=== PATIENT | male | born 1955 | race Caucasian/White ===

== ENCOUNTER 2017-07-13 16:45 | Inpatient (IN) | payer OTHER ==
[~2017-07-13] VITALS: Ht 180.3 cm; Wt 73.5 kg
[~2017-07-13 16:45] MED LIST: ALBU17AE3 IH; CIPR500T78 PO; OMEP20TA2 PO
[2017-07-13] MEDS ORDERED: LACTATED RINGERS 1,000 ML IV ONE (19:03)
--- NOTE | 2017-07-13 19:03 | ED Integumentary General ---
General Chief Complaint: Skin/Wound Problems Stated Complaint: SKIN TEARS Nursing Triage Note: PT TO ED BY EMS, SENT TO WAITING ROOM, THEN TO ROOM 4 PER W/C PT HAS NUMEROUS LESIONS ON TORSO, LEGS AND ARMS. PT STATES HAS BEEN WALKING FROM [place] TO [place] AND PLANS ON GOING TO [place]. Source: patient Exam Limitations: no limitations History of Present Illness Date Seen by Provider: Jul 13, 2017 Time Seen by Provider: 18:49 Initial Comments Patient presents to ER by private conveyance with a chief complaint that he is having a rash. He has a long-standing history of psoriasis as well as a red rash on his abdomen and trunk is been there for a long time that does not bother him so much. However on his legs he is feeling that they are swollen very itchy and he scratched them until they have bled. He says he also does not feel well feels very weak, tired malaise poor appetite. He says he tries to go on his own and lives transiently moving from [place] through the area. He is seen sometimes the [facility] but does not have a clinic or Dr. that he knows of or is assigned to. Allergies and Home Medications Allergies Coded Allergies: No Known Drug Allergies (Unverified , 10/19/12) Patient Home Medication List Home Medication List Reviewed: Yes Constitutional: No chills, No diaphoresis, malaise EENTM: No hearing loss, No ear pain, No eye pain Respiratory: No cough, No short of breath Cardiovascular: No chest pain, No edema Gastrointestinal: No abdominal pain, No constipation, No diarrhea, No nausea, No vomiting Genitourinary: No discharge, No dysuria Musculoskeletal: No back pain, No joint pain Skin: see HPI Past Tgiqysu-Xkoqvs-Ytosge Hx Patient Social History Alcohol Use: Regular Use Number of Drinks Today: 2 Alcohol Beverage of Choice: Beer Recreational Drug Use: No Smoking Status: Never a Smoker Recent Foreign Travel: No Contact w/Someone Who Travel: No Recent Infectious Disease Expo: No Recent Hopitalizations: No Immunizations Up To Date Tetanus Booster (TDap): Less than 5yrs Date of Pneumonia Vaccine: Oct 19, 2008 Date of Influenza Vaccine: Feb 04, 2013 Surgeries History of Surgeries: Yes (R foot L elbow) Respiratory History of Respiratory Disorde: No Cardiovascular History of Cardiac Disorders: No Neurological History of Neurological Disord: Yes Reproductive System Hx Reproductive Disorders: No Gastrointestinal History of Gastrointestinal Di: No Musculoskeletal History of Musculoskeletal Dis: No Endocrine History of Endocrine Disorders: No Cancer History of Cancer: No Psychosocial History of Psychiatric Problem: Yes (alcoholism) Behavioral Health Disorders: Depression Integumentary History of Skin or Integumenta: Yes Skin/Integumentary Disorders: Psoriasis Blood Transfusions History of Blood Disorders: No Adverse Reaction to a Blood Tr: No Family Medical History Significant Family History: COPD Physical Exam Vital Signs Vital Signs - First Documented 07/13/17 17:40 Temp 98.1 Pulse 97 Resp 18 B/P (MAP) 130/82 (98) Pulse Ox 98 Capillary Refill : Less Than 3 Seconds General Appearance: WD/WN, mild distress HEENT: PERRL/EOMI, pharynx normal Neck: non-tender, supple, normal inspection Cardiovascular: normal peripheral pulses, regular rate, rhythm Respiratory: chest non-tender, lungs clear Gastrointestinal: non tender, soft Neurologic/Psychiatric: alert, oriented x 3 Skin: rash (erythematous round raised edged rash on his trunk and upper extremities with silver scaling consistent with psoriasis. Bilateral lower extremities erythematous, tender, swollen with excoriations and scant dried blood.) Progress/Results/Core Measures Results/Orders Lab Results Laboratory Tests Test 07/13/17 19:19 07/13/17 19:59 Range/Units Urine Color YELLOW Urine Clarity CLEAR Urine pH 5 5-9 Urine Specific [place] 1.010 L 1.016-1.022 Urine Protein NEGATIVE NEGATIVE Urine Glucose (UA) NEGATIVE NEGATIVE Urine Ketones NEGATIVE NEGATIVE Urine Nitrite NEGATIVE NEGATIVE Urine Bilirubin NEGATIVE NEGATIVE Urine Urobilinogen NORMAL NORMAL MG/DL Urine Leukocyte Esterase NEGATIVE NEGATIVE Urine RBC (Auto) NEGATIVE NEGATIVE Urine RBC NONE /HPF Urine WBC NONE /HPF Urine Squamous Epithelial Cells RARE /HPF Urine Crystals NONE /LPF Urine Bacteria NEGATIVE /HPF Urine Casts NONE /LPF Urine Mucus NEGATIVE /LPF Urine Culture Indicated NO White Blood Count 4.0 L 4.3-11.0 10^3/uL Red Blood Count 3.10 L 4.35-5.85 10^6/uL Hemoglobin 10.1 L 13.3-17.7 G/DL Hematocrit 29 L 40-54 % Mean Corpuscular Volume 94 80-99 FL Mean Corpuscular Hemoglobin 33 25-34 PG Mean Corpuscular Hemoglobin Concent 35 32-36 G/DL Red Cell Distribution Width 15.1 H 10.0-14.5 % Platelet Count 218 130-400 10^3/uL Mean Platelet Volume 9.2 7.4-10.4 FL Neutrophils (%) (Auto) 58 42-75 % Lymphocytes (%) (Auto) 22 12-44 % Monocytes (%) (Auto) 15 H 0-12 % Eosinophils (%) (Auto) 4 0-10 % Basophils (%) (Auto) 1 0-10 % Neutrophils # (Auto) 2.3 1.8-7.8 X 10^3 Lymphocytes # (Auto) 0.9 L 1.0-4.0 X 10^3 Monocytes # (Auto) 0.6 0.0-1.0 X 10^3 Eosinophils # (Auto) 0.2 0.0-0.3 10^3/uL Basophils # (Auto) 0.0 0.0-0.1 10^3/uL Erythrocyte Sedimentation Rate 34 H 0-30 MM/HR Sodium Level 137 135-145 MMOL/L Potassium Level 4.0 3.6-5.0 MMOL/L Chloride Level 104 98-107 MMOL/L Carbon Dioxide Level 22 21-32 MMOL/L Anion Gap 11 5-14 MMOL/L Blood Urea Nitrogen 8 7-18 MG/DL Creatinine 0.69 0.60-1.30 MG/DL Estimat Glomerular Filtration Rate > 60 BUN/Creatinine Ratio 12 Glucose Level 100 70-105 MG/DL Lactic Acid Level 1.80 0.50-2.00 MMOL/L Calcium Level 8.2 L 8.5-10.1 MG/DL Magnesium Level 1.9 1.8-2.4 MG/DL Total Bilirubin 0.2 0.1-1.0 MG/DL Aspartate Amino Transf (AST/SGOT) 60 H 5-34 U/L Alanine Aminotransferase (ALT/SGPT) 35 0-55 U/L Alkaline Phosphatase 118 40-136 U/L C-Reactive Protein High Sensitivity 0.27 0.00-0.50 MG/DL Total Protein 6.7 6.4-8.2 GM/DL Albumin 3.7 3.2-4.5 GM/DL My Orders Orders - KIRSTIE DARDEN Cbc With Automated Diff (07/13/17 19:03) Comprehensive Metabolic Panel (07/13/17 19:03) Hs C Reactive Protein (07/13/17 19:03) Magnesium (07/13/17 19:03) Tick Panel With Lyme Eia (07/13/17 19:03) Ua Culture If Indicated (07/13/17 19:03) Blood Culture (07/13/17 19:03) Erythrocyte Sedimentation Rate (07/13/17 19:03) Chest Pa/Lat (2 View) (07/13/17 19:03) Saline Lock/Iv-Start (07/13/17 19:03) Lactated Ringers (Lr 1000 Ml Iv Solution (07/13/17 19:03) Loratadine Tablet (Claritin Tablet) (07/13/17 19:15) Ramos Prep (07/13/17 19:03) Ramos Prep (07/13/17 19:04) Lactic Acid Analyzer (07/13/17 19:03) Ceftriaxone Injection (Rocephin Injectio (07/13/17 23:15) Medications Given in ED Current Medications Medications Dose Ordered Sig/Radhika Route Start Time Stop Time Status Last Admin Dose Admin Ceftriaxone Sodium 1000 mg/ Sodium Chloride 100 ml @ 200 mls/hr ONCE ONCE IV 07/13/17 23:15 07/13/17 23:44 DC 07/13/17 23:40 200 MLS/HR Lactated Ringer's 1,000 ml @ 0 mls/hr Q0M ONCE IV 07/13/17 19:03 07/13/17 19:10 DC 07/13/17 20:05 1,000 MLS/HR Loratadine 10 mg ONCE ONCE PO 07/13/17 19:15 07/13/17 19:16 DC 07/13/17 20:37 10 MG Vital Signs/I&O Vital Sign - Last 12Hours 07/13/17 17:40 Temp 98.1 Pulse 97 Resp 18 B/P (MAP) 130/82 (98) Pulse Ox 98 Intake and Output 07/14/17 00:00 Intake Total 1000 ml Balance 1000 ml Blood Pressure Mean: 98 Departure Communication (Admissions) Time/Spoke to Admitting Phy: 00:[address] Stahl Impression Impression: Primary Impression: Cellulitis Qualified Codes: L03.119 - Cellulitis of unspecified part of limb Additional Impressions: Sepsis Qualified Codes: A41.9 - Sepsis, unspecified organism Psoriasis Disposition: 09 ADMITTED INPATIENT Condition: Stable Admissions Decision to Admit Reason: Admit from ER (General) Decision to Admit/Date: Jul 14, 2017 Time/Decision to Admit Time: 00:10 Departure-Patient Inst. Referrals: NO,LOCAL PHYSICIAN (PCP/Family) Primary Care Physician KIRSTIE DARDEN Jul 13, 2017 19:03
[2017-07-13] MEDS ORDERED: LORATADINE (CLARITIN) 10 MG TAB PO ONE (19:15)
[2017-07-13 19:35] LABS: BILIRUBIN,URINE NEGATIVE (NEGATIVE); CLARITY,URINE CLEAR; COLOR,URINE YELLOW; GLUCOSE, URINE (UA) NEGATIVE (NEGATIVE); KETONES,URINE NEGATIVE (NEGATIVE); LEUKOCYTE ESTERASE ,URINE NEGATIVE (NEGATIVE); NITRITE,URINE NEGATIVE (NEGATIVE); PH,URINE 5 (5-9); PROTEIN,URINE NEGATIVE (NEGATIVE); UROBILINOGEN,URINE NORMAL (NORMAL)
[2017-07-13 19:46] LABS: BACTERIA,URINE NEGATIVE /HPF; SQUAMOUS EPITHELIAL CELL,UR RARE /HPF
[2017-07-13 20:08] LABS: BASOPHILS % (AUTO) 1 % (0-10); EOSINOPHILS # (AUTO) 0.2 10^3/uL (0.0-0.3); EOSINOPHILS % (AUTO) 4 % (0-10); HEMATOCRIT 29 % (40-54); HEMOGLOBIN 10.1 G/DL (13.3-17.7); LYMPHOCYTES # (AUTO) 0.9 X 10^3 (1.0-4.0); LYMPHOCYTES % (AUTO) 22 % (12-44); MEAN CORPUSCULAR HEMOGLOBIN 33 PG (25-34); MEAN CORPUSCULAR HGB CONC 35 G/DL (32-36); MEAN CORPUSCULAR VOLUME 94 FL (80-99); MEAN PLATELET VOLUME 9.2 FL (7.4-10.4); MONOCYTES # (AUTO) 0.6 X 10^3 (0.0-1.0); MONOCYTES % (AUTO) 15 % (0-12); NEUTROPHILS # (AUTO) 2.3 X 10^3 (1.8-7.8); NEUTROPHILS % (AUTO) 58 % (42-75); PLATELET COUNT 218 10^3/uL (130-400); RED CELL DISTRIBUTION WIDTH 15.1 % (10.0-14.5)
[2017-07-13 20:33] LABS: ALANINE AMINOTRANSFERASE 35 U/L (0-55); ALBUMIN 3.7 GM/DL (3.2-4.5); ALKALINE PHOSPHATASE 118 U/L (40-136); BILIRUBIN,TOTAL 0.2 MG/DL (0.1-1.0); BUN/CREATININE RATIO 12; CALCIUM 8.2 MG/DL (8.5-10.1); CARBON DIOXIDE 22 MMOL/L (21-32); CHLORIDE 104 MMOL/L (98-107); CREATININE SERUM 0.69 MG/DL (0.60-1.30); ERYTHROCYTE SEDIMENTATION RATE 34 MM/HR (0-30); GFR ESTIMATED > 60; GLUCOSE 100 MG/DL (70-105); MAGNESIUM 1.9 MG/DL (1.8-2.4); SODIUM 137 MMOL/L (135-145); TOTAL PROTEIN 6.7 GM/DL (6.4-8.2)
--- NOTE | 2017-07-13 21:39 | Diagnostic Imaging Report ---
INDICATION: Weakness, rule out sepsis. COMPARISON STUDY: Chest from 01/29/2016. FINDINGS: Frontal and lateral views of the chest demonstrate COPD changes. No focal infiltrates are present. The heart size and vascularity are normal. There are no pleural effusions. IMPRESSION: COPD. Dictated by: Dictated on workstation # [id number]
[2017-07-13] MEDS ORDERED: cefTRIAXone INJECTION 1,000 MG in NS (IVPB) 100 ML IV ONE (23:15)
[2017-07-14] VITALS (8 sets, daily range): BP systolic 115–155; BP diastolic 61–86
[2017-07-14] MEDS ORDERED: 1/2 NS W/KCL 20 MEQ/L 1,000 ML IV ONE (01:26)
[2017-07-14] MEDS: 1/2 NS W/KCL 20 MEQ/L 1,000 ML IV SCH ×2 (01:44→08:10)
[2017-07-14] MEDS ORDERED: ONDANSETRON 4 MG/2 ML (SDV) Z0FRAN IV PRN (02:00)
[2017-07-14] MEDS ORDERED: IBUPROFEN 800 MG (MOTRIN) TAB PO PRN (02:00)
[2017-07-14] MEDS ORDERED: ACETAMINOPHEN 500 MG TAB (TYLENOL) PO PRN (02:00)
[2017-07-14 06:01] LABS: BASOPHILS % (AUTO) 1 % (0-10); EOSINOPHILS # (AUTO) 0.2 10^3/uL (0.0-0.3); EOSINOPHILS % (AUTO) 5 % (0-10); HEMATOCRIT 27 % (40-54); HEMOGLOBIN 9.1 G/DL (13.3-17.7); LYMPHOCYTES # (AUTO) 0.8 X 10^3 (1.0-4.0); LYMPHOCYTES % (AUTO) 23 % (12-44); MEAN CORPUSCULAR HEMOGLOBIN 32 PG (25-34); MEAN CORPUSCULAR HGB CONC 34 G/DL (32-36); MEAN CORPUSCULAR VOLUME 95 FL (80-99); MEAN PLATELET VOLUME 9.5 FL (7.4-10.4); MONOCYTES # (AUTO) 0.5 X 10^3 (0.0-1.0); MONOCYTES % (AUTO) 14 % (0-12); NEUTROPHILS # (AUTO) 2.1 X 10^3 (1.8-7.8); NEUTROPHILS % (AUTO) 58 % (42-75); PLATELET COUNT 205 10^3/uL (130-400); RED BLOOD COUNT 2.85 10^6/uL (4.35-5.85); RED CELL DISTRIBUTION WIDTH 15.3 % (10.0-14.5); WHITE BLOOD COUNT 3.6 10^3/uL (4.3-11.0)
[2017-07-14 06:21] LABS: BUN/CREATININE RATIO 13; CARBON DIOXIDE 20 MMOL/L (21-32); CHLORIDE 109 MMOL/L (98-107); CREATININE SERUM 0.71 MG/DL (0.60-1.30); GFR ESTIMATED > 60; GLUCOSE 84 MG/DL (70-105); POTASSIUM 4.1 MMOL/L (3.6-5.0); SODIUM 139 MMOL/L (135-145)
[2017-07-14] MEDS ORDERED: INFLUENZA TRIvalent 2017-2018 0.5 ML/45 MCG SYR IM ONE (07:15)
[2017-07-14] MEDS ORDERED: THIAMINE INJECTION 100 MG, FOLIC ACID INJECTION 1 MG, MAGNESIUM SULFATE 2 GM, VITAMIN M... IV SCH ×5 (08:04)
[2017-07-14] MEDS ORDERED: 1/2 NS IV SOLUTION 1,000 ML IV PRN (08:04)
[2017-07-14] MEDS ORDERED: D5 1/2 NS 1000 ML IV SOLUTION 1,000 ML IV PRN (08:15)
[2017-07-14] MEDS ORDERED: LORazepam INJ 2 MG/ML (ATIVAN) VIAL IV PRN (08:15)
[2017-07-14] MEDS ORDERED: LORazepam 1 MG (ATIVAN) TAB PO PRN (08:15)
[2017-07-14] MEDS ORDERED: LORazepam INJ 2 MG/ML (ATIVAN) VIAL IM/IV PRN (08:15)
--- NOTE | 2017-07-14 08:30 | History & Physical-Hospitalist ---
HPI History of Present Illness: HPI/Chief Complaint Pt is a 62yoCM with a PMH of psoriasis and alcohol abuse who presented to the ER for a wound on his right knee. He denies any history of trauma or fall but noticed 2 days that his leg he had a wound on his knee. It was draining purulent fluid and decided to call 911 yesterday. He reports he was in [place] walking through it on his way to [place] from [facility]. He is homeless and has been sleeping outside during this trek. He denies any known bug bites. He denies fevers, chills, or any sick contacts. 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 Yesterday he only drank 1-2 and now he is shaking and feels like he may be withdrawing from alcohol. Source: patient Exam Limitations: no limitations Date Seen 07/14/17 Time Seen by Provider: 08:05 Attending Physician Gini Stahl MD PCP No,Local Physician Referring Physician Date of Admission Jul 14, 2017 at 12:01 am Home Medications & Allergies Home Medications Reviewed patient Home Medication Reconciliation Form Allergies Allergies Coded Allergies No Known Drug Allergies (Unverified10/19/12) Past Zatzncz-Aztqgg-Dlgltx Hx Patient Social History Marrital Status: single Employed/Student: unemployed Alcohol Use: Regular Use Number of Drinks Today: 2 Alcohol Beverage of Choice: Beer (6-8 40oz of beer) Recreational Drug Use: No Smoking Status: Never a Smoker Physical Abuse Screen: No Sexual Abuse: No Recent Foreign Travel: No Contact w/other who traveled: No Recent Hopitalizations: No Recent Infectious Disease Expo: No Immunizations Up To Date Tetanus Booster (TDap): Less than 5yrs Date of Pneumonia Vaccine: Oct 19, 2008 Date of Influenza Vaccine: Feb 04, 2013 Seasonal Allergies Seasonal Allergies: No Surgeries Yes (R foot L elbow) Respiratory No Cardiovascular No Neurological Yes Reproductive System Hx Reproductive Disorders: No Genitourinary No Gastrointestinal No Musculoskeletal No Endocrine History of Endocrine Disorders: No HEENT History of HEENT Disorders: No Cancer No Psychosocial History of Psychiatric Problem: Yes (alcoholism) Behavioral Health Disorders: Depression Integumentary History of Skin or Integumenta: Yes Skin/Integumentary Disorders: Psoriasis Blood Transfusions History of Blood Disorders: No Adverse Reaction to a Blood Tr: No Family Medical History Significant Family History: Cancer (father-unknown kind), COPD Family Hx: Patient reports no known family medical history. Review of Systems Constitutional: No chills, No fever, No weakness, No weight loss EENTM: No blurred vision, No double vision, No hoarseness, No nose congestion, No throat pain Respiratory: No cough, No dyspnea on exertion, No phlegm, No short of breath Cardiovascular: No chest pain, No edema, No palpitations Gastrointestinal: No abdominal pain, No constipation, diarrhea (3-4 days ago- none since), No loss of appetite, No melena, No nausea, No vomiting Genitourinary: No dysuria, No frequency Musculoskeletal: joint pain (knee pain), No joint swelling, No muscle pain, No muscle weakness Skin: see HPI, pruritus, rash Psychiatric/Neurological: Denies Anxiety, Denies Emotional Problems, Denies Headache, Denies Numbness, Denies Tingling, Tremors Physical Exam Physical Exam Vital Signs Vital Signs - First Documented 07/13/17 07/14/17 17:40 01:00 Temp 98.1 Pulse 97 Resp 18 B/P (MAP) 130/82 (98) Pulse Ox 98 O2 Delivery Room Air Capillary Refill : Less Than 3 Seconds General Appearance: WD/WN, Chronically ill, Mild Distress HEENT: PERRL/EOMI, Moist Mucous Membranes, No Scleral Icterus (L), No Scleral Icterus (R) Neck: Normal Inspection, Supple, No JVD, No Thyromegaly Respiratory: Lungs Clear, No Accessory Muscle Use, No Respiratory Distress Cardiovascular: Regular Rate, Rhythm, No Edema, No Murmur, Normal Peripheral Pulses Gastrointestinal: Normal Bowel Sounds, Non Tender, Soft, No Distended, No Guarding, No Rebound Extremity: Normal Capillary Refill, Non Tender, No Calf Tenderness, No Pedal Edema Neurologic/Psychiatric: Alert, Oriented x3, No Motor/Sensory Deficits, Normal Mood/Affect Skin: Other (significant erythema on bilateral legs with excoriations and injuries consitent with fall (horizontal linear abrasions), right knee with 3cm abrasions with purlent drainage, bilateral elbows with psoriatic plaques) Results Results/Procedures Lab Laboratory Tests 07/13/17 19:59 07/14/17 05:45 Radiology Date of Exam: 07/13/17 CHEST PA/LAT (2 VIEW) INDICATION: Weakness, rule out sepsis. COMPARISON STUDY: Chest from 01/29/2016. FINDINGS: Frontal and lateral views of the chest demonstrate COPD changes. No focal infiltrates are present. The heart size and vascularity are normal. There are no pleural effusions. IMPRESSION: COPD. Assessment/Plan Admission Diagnosis Sepsis Admission Status: Inpatient Order (span 2 midnights) Reason for Inpatient Admission: Sepsis, needs IV abx Diagnosis/Problems Diagnosis/Problems (1) Sepsis Status: Acute Assessment & Plan: right knee cellulitis with overlying abrasions appears to be due to fall but patient denies history may be skewed by intoxication Will get knee XR Leukopenia with tachycardia as well Lactic normal, no hypotension No need for 30cc/kg bolus Continue on Rocephin and obtain wound culture Blood cultures ordered in ER Qualifiers: Qualified Codes: A41.9 - Sepsis, unspecified organism (2) Cellulitis Status: Acute Assessment & Plan: Antibiotics as above Appears to be cellulitis- no symptoms of joint involvement Qualifiers: Qualified Codes: L03.115 - Cellulitis of right lower limb (3) Alcohol abuse Assessment & Plan: Reports 2 beers yesterday Alcohol level this AM [address] on CIWA protocol Oral ativan given, IV available should CIWA score necessitate it Tremors noted during my exam Banana Bag ordered (4) Normocytic anemia Assessment & Plan: Likely due to malnutrition from alcohol abuse Trend- no signs of symptoms of bleeding Will start on multivitamin (5) Hypomagnesemia Status: Acute Assessment & Plan: Will replaced (6) Psoriasis Status: Acute Assessment & Plan: On no medications as outpatient Will continue emolient treatments currently Can try steroids on elbows where tick plaques are if desired (7) Discharge planning issues Assessment & Plan: He is homeless with active alcohol dependence Will consult for assistance with DC planning (8) Prophylactic measure Assessment & Plan: Lovenox Banana Bag Regular Diet Clinical Quality Measures DVT/VTE Risk/Contraindication: Risk Factor Score Per Nursin RFS Level Per Nursing on Admit: 4+=Very High GINI STAHL MD Jul 14, 2017 08:30
[2017-07-14] MEDS: MULTIVIT W/MINERALS TAB (THERAGRAN M) PO SCH (09:16)
[2017-07-14] MEDS: ENOXAPARIN 40 MG/0.4 ML (LOVENOX) SYR SC SCH (09:17)
--- NOTE | 2017-07-14 10:28 | Diagnostic Imaging Report ---
INDICATION: Cellulitis and sepsis. 3 views of right knee were obtained. FINDINGS: The alignment is normal. There is no fracture or dislocation. Soft tissues are unremarkable. There does not appear to be a joint effusion. There are mild degenerative changes. IMPRESSION: Mild degenerative change, otherwise unremarkable. Dictated by: Dictated on workstation # [id number]
[2017-07-14] MEDS: THIAMINE INJECTION 100 MG, FOLIC ACID INJECTION 1 MG, MAGNESIUM SULFATE 2 GM, VITAMIN M... IV SCH ×5 (11:28)
[2017-07-14] MEDS: MAGNESIUM 1 GM/100 ML IVPB 100 ML IV SCH ×4 (13:57→17:10)
[2017-07-14] MEDS: diphenhydrAMINE 25 MG TAB (BENADRYL) PO PRN (19:58)
[2017-07-14] MEDS: BETAMETHASONE DIPRO (AUGMENTED) 0.05% OINT 15 GM TOP SCH (21:38)
[2017-07-14] MEDS: cefTRIAXone INJECTION 1,000 MG in NS (IVPB) 100 ML IV SCH (23:11)
[2017-07-15 00:59] VITALS: BP 144/73
[2017-07-15] MEDS: MULTIVIT W/MINERALS TAB (THERAGRAN M) PO SCH (06:06)
[2017-07-15 06:20] LABS: BASOPHILS % (AUTO) 1 % (0-10); EOSINOPHILS # (AUTO) 0.3 10^3/uL (0.0-0.3); EOSINOPHILS % (AUTO) 8 % (0-10); HEMATOCRIT 27 % (40-54); HEMOGLOBIN 8.9 G/DL (13.3-17.7); LYMPHOCYTES # (AUTO) 0.9 X 10^3 (1.0-4.0); LYMPHOCYTES % (AUTO) 26 % (12-44); MEAN CORPUSCULAR HEMOGLOBIN 32 PG (25-34); MEAN CORPUSCULAR HGB CONC 34 G/DL (32-36); MEAN CORPUSCULAR VOLUME 96 FL (80-99); MEAN PLATELET VOLUME 9.9 FL (7.4-10.4); MONOCYTES # (AUTO) 0.6 X 10^3 (0.0-1.0); MONOCYTES % (AUTO) 17 % (0-12); NEUTROPHILS # (AUTO) 1.6 X 10^3 (1.8-7.8); NEUTROPHILS % (AUTO) 49 % (42-75); PLATELET COUNT 182 10^3/uL (130-400); RED BLOOD COUNT 2.77 10^6/uL (4.35-5.85); RED CELL DISTRIBUTION WIDTH 15.3 % (10.0-14.5); WHITE BLOOD COUNT 3.3 10^3/uL (4.3-11.0)
[2017-07-15 06:22] LABS: BUN/CREATININE RATIO 14; CALCIUM 7.9 MG/DL (8.5-10.1); CARBON DIOXIDE 22 MMOL/L (21-32); CHLORIDE 107 MMOL/L (98-107); CREATININE SERUM 0.74 MG/DL (0.60-1.30); GFR ESTIMATED > 60; GLUCOSE 91 MG/DL (70-105); MAGNESIUM 2.2 MG/DL (1.8-2.4); POTASSIUM 3.8 MMOL/L (3.6-5.0); SODIUM 136 MMOL/L (135-145)
[2017-07-15 08:00] VITALS: BP 142/68
[2017-07-15] MEDS: BETAMETHASONE DIPRO (AUGMENTED) 0.05% OINT 15 GM TOP SCH ×2 (08:49→20:11)
[2017-07-15] MEDS: THIAMINE INJECTION 100 MG, FOLIC ACID INJECTION 1 MG, MAGNESIUM SULFATE 2 GM, VITAMIN M... IV SCH ×5 (08:49)
[2017-07-15] MEDS: ENOXAPARIN 40 MG/0.4 ML (LOVENOX) SYR SC SCH (08:49)
--- NOTE | 2017-07-15 12:34 | Progress Note-Hospitalist ---
Subjective HPI/CC On Admission Date Seen by Provider: Jul 15, 2017 Time Seen by Provider: 12:07 Pt is a 62yoCM with a PMH of psoriasis and alcohol abuse who presented to the ER for a wound on his right knee. He denies any history of trauma or fall but noticed 2 days that his leg he had a wound on his knee. It was draining purulent fluid and decided to call 911 yesterday. He reports he was in [place] walking through it on his way to [place] from [facility]. He is homeless and has been sleeping outside during this trek. He denies any known bug bites. He denies fevers, chills, or any sick contacts. 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 Yesterday he only drank 1-2 and now he is shaking and feels like he may be withdrawing from alcohol. Subjective/Events-last exam Pt reports feeling better today. He still has some throbbing pain in his right leg around his knee though. Also complains of itching on his legs. Eating well. Had a BM. Urinating well. No other complaints. Objective Exam Vital Signs Vital Signs Date Time Temp Pulse Resp B/P (MAP) Pulse Ox O2 Delivery O2 Flow Rate FiO2 07/13/17 17:40 98.1 97 18 130/82 (98) 98 07/14/17 01:00 Room Air Capillary Refill : Less Than 3 Seconds General Appearance: No Apparent Distress, WD/WN Respiratory: Lungs Clear, No Respiratory Distress Cardiovascular: Regular Rate, Rhythm, No Murmur Gastrointestinal: Normal Bowel Sounds, Non Tender, Soft Extremity: Non Tender, No Calf Tenderness, No Pedal Edema Neurologic/Psychiatric: Alert, Oriented x3 Skin: Other (excoriations on bilateral legs, abrasion on right kneecap, erythema improving) Results/Procedures Lab Laboratory Tests 07/15/17 05:48 Assessment/Plan Assessment and Plan Assess & Plan/Chief Complaint Cellulitis Diagnosis/Problems Diagnosis/Problems (1) Sepsis Status: Resolved Assessment & Plan: right knee cellulitis with overlying abrasions appears to be due to fall but patient denies history may be skewed by intoxication Leukopenia persists but tachycardia resolved Continue on Rocephin and obtain wound culture Blood cultures ordered in ER Qualifiers: Qualified Codes: A41.9 - Sepsis, unspecified organism (2) Cellulitis Status: Acute Assessment & Plan: Antibiotics as above Appears to be cellulitis- no symptoms of joint involvement Knee XR normal Qualifiers: Qualified Codes: L03.115 - Cellulitis of right lower limb (3) Alcohol abuse Assessment & Plan: Reports 2 beers yesterday Alcohol level this AM [address] on CIWA protocol Oral ativan given, IV available should CIWA score necessitate it Tremors noted during my exam Banana Bag ordered (4) Normocytic anemia Assessment & Plan: Likely due to malnutrition from alcohol abuse Trend- no signs of symptoms of bleeding, stable Cont multivitamin (5) Hypomagnesemia Status: Acute Assessment & Plan: Resolved (6) Psoriasis Status: Acute Assessment & Plan: Continue emollients and topical steroids on elbow (7) Discharge planning issues Assessment & Plan: He is homeless with active alcohol dependence Will consult SW for assistance with DC planning (8) Prophylactic measure Assessment & Plan: Lovenox Banana Bag Regular Diet GINI LOWE MD Jul 15, 2017 12:34
[2017-07-15 16:45] VITALS: BP 152/89
[2017-07-15] MEDS: diphenhydrAMINE 25 MG TAB (BENADRYL) PO PRN (20:11)
[2017-07-15] MEDS: cefTRIAXone INJECTION 1,000 MG in NS (IVPB) 100 ML IV SCH (22:14)
[2017-07-16 00:35] VITALS: BP 126/64
[2017-07-16] MEDS: MULTIVIT W/MINERALS TAB (THERAGRAN M) PO SCH (06:09)
[2017-07-16 08:00] VITALS: BP 138/57
[2017-07-16] MEDS: ENOXAPARIN 40 MG/0.4 ML (LOVENOX) SYR SC SCH (10:15)
[2017-07-16] MEDS: BETAMETHASONE DIPRO (AUGMENTED) 0.05% OINT 15 GM TOP SCH (10:16)
[2017-07-16] MEDS: THIAMINE INJECTION 100 MG, FOLIC ACID INJECTION 1 MG, MAGNESIUM SULFATE 2 GM, VITAMIN M... IV SCH ×5 (10:26)
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
[2017-07-16] MEDS ORDERED: AMOX-358 PO (13:03)
--- NOTE | 2017-07-16 13:05 | Discharge Instructions ---
Discharge Instructions Patient Instructions Patient Instructions: Keep wound clean and dry. Continue your best to avoid rubbing from your pants. Take the antibiotic as prescribed DEEPAK ESCALERA MD Jul 16, 2017 13:05
[2017-07-16] MEDS ORDERED: MUPIROCIN 2% OINT 22 GM (BACTROBAN) TUBE TOP SCH ×3 (14:45→21:00)
== END 2017-07-16 15:20 | disposition home or self-care (01) | DRG 872 ==
LOC: EDUNIT# 16:46 → ER 16:47 → 4TH 07-14 00:01
PROVIDERS: ADMIT Family Medicine; ATTEND Family Medicine
DX: A41.9 Sepsis, unspecified organism (principal); L03.115 Cellulitis of right lower limb; B95.61 Methicillin susceptible Staphylococcus aureus infection as the cause of diseases classified elsewhere; L40.9 Psoriasis, unspecified; F10.20 Alcohol dependence, uncomplicated; Y90.4 Blood alcohol level of 80-99 mg/100 ml; D64.9 Anemia, unspecified; E83.42 Hypomagnesemia; Z59.0 Homelessness
CPT/HCPCS: 36415; 71046; 73562; 80048; 80053; 80320; 81000; 83605; 83735; 85025; 85652; 86141; 86618; 86666; 86668; 86757; 87040; 87070; 87077; 87186; 87205; 87220; 96361; 96365

== ENCOUNTER 2017-07-20 19:24 | Emergency (ER) | payer OTHER ==
[~2017-07-20] VITALS: Ht 182.9 cm; Wt 70.3 kg
[~2017-07-20 19:24] MED LIST changes: +AMOX-358 PO
--- NOTE | 2017-07-20 20:25 | ED Lower Extremity ---
General Chief Complaint: Lower Extremity Stated Complaint: R KNEE PAIN Nursing Triage Note: PATIENT STATES THAT HIS RIGHT KNEE IS BETTER. Nursing Sepsis Screen: No Definite Risk Source: patient Exam Limitations: no limitations History of Present Illness Date Seen by Provider: Jul 20, 2017 Time Seen by Provider: 20:25 Allergies and Home Medications Allergies Coded Allergies: No Known Drug Allergies (Unverified , 10/19/12) Home Medications Amoxicillin/Potassium Clav 1 Each Tablet, 1 EACH PO TWICE A DAY Prescribed by: DEEPAK ESCALERA on 07/16/17 1303 Sulfamethoxazole/Trimethoprim 1 Each Tablet, 1 EACH PO BID Prescribed by: GRACIELA BLAKELY on 07/20/17 2238 Patient Home Medication List Home Medication List Reviewed: Yes Past Jrmndsi-Epvtxc-Yysbil Hx Patient Social History Alcohol Beverage of Choice: Beer Recent Foreign Travel: No Contact w/Someone Who Travel: No Recent Infectious Disease Expo: No Recent Hopitalizations: No Immunizations Up To Date Tetanus Booster (TDap): Less than 5yrs Date of Pneumonia Vaccine: Oct 19, 2008 Date of Influenza Vaccine: Feb 04, 2013 Seasonal Allergies Seasonal Allergies: No Surgeries History of Surgeries: Yes (R foot L elbow) Respiratory History of Respiratory Disorde: No Cardiovascular History of Cardiac Disorders: No Neurological History of Neurological Disord: Yes Reproductive System Hx Reproductive Disorders: No Genitourinary History of Genitourinary Disor: No Gastrointestinal History of Gastrointestinal Di: No Musculoskeletal History of Musculoskeletal Dis: No Endocrine History of Endocrine Disorders: No HEENT History of HEENT Disorders: No Cancer History of Cancer: No Psychosocial History of Psychiatric Problem: Yes (alcoholism) Behavioral Health Disorders: Depression Integumentary History of Skin or Integumenta: Yes Skin/Integumentary Disorders: Psoriasis Blood Transfusions History of Blood Disorders: No Adverse Reaction to a Blood Tr: No Family Medical History Significant Family History: Cancer, COPD Family Medial History: Patient reports no known family medical history. Physical Exam Vital Signs Vital Signs - First Documented 07/20/17 20:01 Temp 98.9 Pulse 100 Resp 18 B/P (MAP) 127/70 (89) Pulse Ox 99 O2 Delivery Room Air Capillary Refill : Less Than 3 Seconds Progress/Results/Core Measures Results/Orders My Orders Orders - GRACIELA BLAKELY Rx-Trimeth/Sulfameth Ds Tab (Rx-Bactrim/ (3/16/18 22:45) Vital Signs/I&O Vital Sign - Last 12Hours 07/20/17 07/20/17 20:01 23:10 Temp 98.9 98.9 Pulse 100 100 Resp 18 18 B/P (MAP) 127/70 (89) 127/70 (89) Pulse Ox 99 99 O2 Delivery Room Air Blood Pressure Mean: 89 Departure Impression Impression: Primary Impression: Cellulitis of right knee Additional Impression: Alcohol intoxication Disposition: 01 HOME, SELF-CARE Condition: Improved Departure-Patient Inst. Decision time for Depature: 22:37 Referrals: NO,LOCAL PHYSICIAN (PCP/Family) Primary Care Physician Patient Instructions: ALCOHOL AND SUBSTANCE ABUSE, Alcohol Abuse and Alcoholism (DC), Cellulitis (Skin Infection), Adult (DC) Add. Discharge Instructions: All discharge instructions reviewed with patient and/or family. Voiced understanding.medications as instructed. Elevate the right knee on pillows. Follow-up with your primary care provider of choice to establish care, assistance with alcohol rehab, and for recheck. Call for appointment time in the morning. Return to the emergency department for worsenedsymptoms or any other concerns. 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
[2017-07-20] MEDS ORDERED: SULF1TAB35 PO (22:38)
[2017-07-20] MEDS ORDERED: RX-TRIMETH/SULFA. 160-800 MG (BACTRIM DS) TAB PPK#2 PO STA (22:45)
[2017-07-20 23:10] VITALS: BP 127/70
== END 2017-07-20 23:14 | disposition home or self-care (01) ==
LOC: EDUNIT# 19:24 → ER 19:25
DX: L03.115 Cellulitis of right lower limb (principal); F10.129 Alcohol abuse with intoxication, unspecified; F32.9 Major depressive disorder, single episode, unspecified
CPT/HCPCS: 99283

== ENCOUNTER 2017-07-26 19:15 | Emergency (ER) | payer OTHER ==
[~2017-07-26] VITALS: Ht 172.7 cm; Wt 99.8 kg
[~2017-07-26 19:15] MED LIST changes: +SULF1TAB35 PO
[2017-07-26] MEDS ORDERED: THIAMINE INJECTION 100 MG, FOLIC ACID INJECTION 1 MG, VITAMIN MULTI INJECTION 10 ML, MA... IV SCH ×5 (19:30)
--- NOTE | 2017-07-26 19:43 | ED General ---
General Chief Complaint: Lower Extremity Stated Complaint: ETOH Nursing Triage Note: pt brought into er by ems with complaint of lower leg pain and chest pain. pt was found drunk and sleeping by police. Nursing Sepsis Screen: No Definite Risk History of Present Illness Date Seen by Provider: Jul 26, 2017 Time Seen by Provider: 19:38 Initial Comments Patient is a 62-year-old male who is brought into the emergency room by [facility] due to being intoxicated. EMS reports that [facility] called because he was at a local motel and causing the scene and he was obviously intoxicated. Patient reports that he walked to [place] from [facility] one week ago. He is very cooperative with staff and very slurred speech today. Associated Systoms: Denies Symptoms Allergies and Home Medications Allergies Coded Allergies: No Known Drug Allergies (Unverified , 10/19/12) Home Medications Amoxicillin/Potassium Clav 1 Each Tablet, 1 EACH PO TWICE A DAY Prescribed by: DEEPAK ESCALERA on 07/16/17 1303 Sulfamethoxazole/Trimethoprim 1 Each Tablet, 1 EACH PO BID Prescribed by: GRACIELA BLAKELY on 07/20/17 7068 Patient Home Medication List Home Medication List Reviewed: Yes Constitutional: no symptoms reported, see HPI EENTM: see HPI, no symptoms reported Respiratory: no symptoms reported, see HPI Cardiovascular: no symptoms reported, see HPI Gastrointestinal: no symptoms reported, see HPI Genitourinary: no symptoms reported, see HPI Musculoskeletal: no symptoms reported, see HPI Skin: no symptoms reported, see HPI Psychiatric/Neurological: No Symptoms Reported, See HPI Hematologic/Lymphatic: No Symptoms Reported, See HPI Immunological/Allergic: no symptoms reported, see HPI Past Ubxohho-Ltgwft-Mefymo Hx Patient Social History Alcohol Beverage of Choice: Beer 2nd Hand Smoke Exposure: No Recent Foreign Travel: No Contact w/Someone Who Travel: No Recent Infectious Disease Expo: No Recent Hopitalizations: No Immunizations Up To Date Tetanus Booster (TDap): Less than 5yrs Date of Pneumonia Vaccine: Oct 19, 2008 Date of Influenza Vaccine: Feb 04, 2013 Seasonal Allergies Seasonal Allergies: No Surgeries History of Surgeries: Yes (R foot L elbow) Respiratory History of Respiratory Disorde: No Cardiovascular History of Cardiac Disorders: No Neurological History of Neurological Disord: Yes Reproductive System Hx Reproductive Disorders: No Genitourinary History of Genitourinary Disor: No Gastrointestinal History of Gastrointestinal Di: No Musculoskeletal History of Musculoskeletal Dis: No Endocrine History of Endocrine Disorders: No HEENT History of HEENT Disorders: No Cancer History of Cancer: No Psychosocial History of Psychiatric Problem: Yes (alcoholism) Behavioral Health Disorders: Depression Integumentary History of Skin or Integumenta: Yes Skin/Integumentary Disorders: Psoriasis Blood Transfusions History of Blood Disorders: No Adverse Reaction to a Blood Tr: No Family Medical History Significant Family History: Cancer, COPD Family Medial History: Patient reports no known family medical history. Physical Exam Vital Signs Vital Signs - First Documented 07/26/17 19:17 Temp 99.2 Pulse 110 Resp 20 B/P (MAP) 140/87 (104) Pulse Ox 97 O2 Delivery Nasal Cannula Capillary Refill : Less Than 3 Seconds General Appearance: No Apparent Distress, WD/WN HEENT: Normal ENT Inspection, Pharynx Normal Neck: Full Range of Motion, Normal Inspection Respiratory: Chest Non Tender, Lungs Clear, Normal Breath Sounds, No Accessory Muscle Use, No Respiratory Distress Cardiovascular: Regular Rate, Rhythm, No Edema, No Gallop, No JVD, No Murmur, Normal Peripheral Pulses Gastrointestinal: Normal Bowel Sounds, No Organomegaly Back: Normal Inspection, No CVA Tenderness Extremity: Normal Capillary Refill, Normal Inspection (R) Neurologic/Psychiatric: Alert, Oriented x3 (to person and place.), Other ( slurred speech) Skin: Normal Color, Warm/Dry Progress/Results/Core Measures Suspected Sepsis Recent Fever Within 48 Hours: No Infection Criteria Present: None New/Unexplained Altered Menta: No Sepsis Screen: No Definite Risk Sepsis Diagnosis: SIRS Temperature:99.2 Pulse: 110 Respiratory Rate: 20 Laboratory Tests 07/26/17 20:00: White Blood Count 3.2L Blood Pressure 140 /87 Mean: 104 Laboratory Tests 07/26/17 20:00: Creatinine 0.78, Platelet Count 312, Total Bilirubin 0.4 Results/Orders Lab Results Laboratory Tests Test 07/26/17 20:00 07/26/17 22:35 07/26/17 22:53 Range/Units White Blood Count 3.2 L 4.3-11.0 10^3/uL Red Blood Count 3.44 L 4.35-5.85 10^6/uL Hemoglobin 11.0 L 13.3-17.7 G/DL Hematocrit 32 L 40-54 % Mean Corpuscular Volume 92 80-99 FL Mean Corpuscular Hemoglobin 32 25-34 PG Mean Corpuscular Hemoglobin Concent 35 32-36 G/DL Red Cell Distribution Width 15.5 H 10.0-14.5 % Platelet Count 312 130-400 10^3/uL Mean Platelet Volume 9.3 7.4-10.4 FL Neutrophils (%) (Auto) 50 42-75 % Lymphocytes (%) (Auto) 31 12-44 % Monocytes (%) (Auto) 12 0-12 % Eosinophils (%) (Auto) 6 0-10 % Basophils (%) (Auto) 1 0-10 % Neutrophils # (Auto) 1.6 L 1.8-7.8 X 10^3 Lymphocytes # (Auto) 1.0 1.0-4.0 X 10^3 Monocytes # (Auto) 0.4 0.0-1.0 X 10^3 Eosinophils # (Auto) 0.2 0.0-0.3 10^3/uL Basophils # (Auto) 0.0 0.0-0.1 10^3/uL Sodium Level 135 135-145 MMOL/L Potassium Level 4.5 3.6-5.0 MMOL/L Chloride Level 101 98-107 MMOL/L Carbon Dioxide Level 20 L 21-32 MMOL/L Anion Gap 14 5-14 MMOL/L Blood Urea Nitrogen 8 7-18 MG/DL Creatinine 0.78 0.60-1.30 MG/DL Estimat Glomerular Filtration Rate > 60 BUN/Creatinine Ratio 10 Glucose Level 76 70-105 MG/DL Calcium Level 8.8 8.5-10.1 MG/DL Total Bilirubin 0.4 0.1-1.0 MG/DL Aspartate Amino Transf (AST/SGOT) 51 H 5-34 U/L Alanine Aminotransferase (ALT/SGPT) 30 0-55 U/L Alkaline Phosphatase 127 40-136 U/L Total Protein 7.8 6.4-8.2 GM/DL Albumin 4.4 3.2-4.5 GM/DL Serum Alcohol 458 *H 391 *H <10 MG/DL Urine Color YELLOW Urine Clarity CLEAR Urine pH 6 5-9 Urine Specific [place] 1.010 L 1.016-1.022 Urine Protein NEGATIVE NEGATIVE Urine Glucose (UA) NEGATIVE NEGATIVE Urine Ketones NEGATIVE NEGATIVE Urine Nitrite NEGATIVE NEGATIVE Urine Bilirubin NEGATIVE NEGATIVE Urine Urobilinogen NORMAL NORMAL MG/DL Urine Leukocyte Esterase NEGATIVE NEGATIVE Urine RBC (Auto) NEGATIVE NEGATIVE Urine RBC NONE /HPF Urine WBC NONE /HPF Urine Squamous Epithelial Cells RARE /HPF Urine Crystals NONE /LPF Urine Bacteria NONE /HPF Urine Casts NONE /LPF Urine Mucus NEGATIVE /LPF Urine Culture Indicated NO Urine Opiates Screen NEGATIVE NEGATIVE Urine Oxycodone Screen NEGATIVE NEGATIVE Urine Methadone Screen NEGATIVE NEGATIVE Urine Propoxyphene Screen NEGATIVE NEGATIVE Urine Barbiturates Screen NEGATIVE NEGATIVE Ur Tricyclic Antidepressants Screen NEGATIVE NEGATIVE Urine Phencyclidine Screen NEGATIVE NEGATIVE Urine Amphetamines Screen NEGATIVE NEGATIVE Urine Methamphetamines Screen NEGATIVE NEGATIVE Urine Benzodiazepines Screen NEGATIVE NEGATIVE Urine Cocaine Screen NEGATIVE NEGATIVE Urine Cannabinoids Screen NEGATIVE NEGATIVE My Orders Orders - JUSTICE AREVALO APRN Cbc With Automated Diff (07/26/17 19:29) Comprehensive Metabolic Panel (07/26/17 19:29) Alcohol (07/26/17 19:29) Ua Culture If Indicated (07/26/17 19:29) Drug Screen Stat (Urine) (07/26/17 19:29) Saline Lock/Iv-Start (07/26/17 19:29) Thiamine Injection (Vitamin B-1 Injectio (07/26/17 19:30) Alcohol (07/26/17 22:05) Vital Signs/I&O Vital Sign - Last 12Hours 07/26/17 19:17 Temp 99.2 Pulse 110 Resp 20 B/P (MAP) 140/87 (104) Pulse Ox 97 O2 Delivery Nasal Cannula Capillary Refill : Less Than 3 Seconds Blood Pressure Mean: 104 Departure Communication (Admissions) Progress Notes 2319- alcohol 391, patient much more alert, sitting up in bed talking with us. Stable for discharge. Impression Impression: Primary Impression: Alcohol intoxication Disposition: 01 HOME, SELF-CARE Condition: Stable Departure-Patient Inst. Decision time for Depature: 22:27 Referrals: NO,LOCAL PHYSICIAN (PCP/Family) Primary Care Physician Patient Instructions: Alcohol Abuse and Alcoholism (DC) Add. Discharge Instructions: All discharge instructions reviewed with patient and/or family. Voiced understanding. JUSTICE AREVALO APRN Jul 26, 2017 19:43
[2017-07-26 20:22] LABS: BASOPHILS % (AUTO) 1 % (0-10); EOSINOPHILS # (AUTO) 0.2 10^3/uL (0.0-0.3); EOSINOPHILS % (AUTO) 6 % (0-10); HEMATOCRIT 32 % (40-54); LYMPHOCYTES % (AUTO) 31 % (12-44); MEAN CORPUSCULAR HEMOGLOBIN 32 PG (25-34); MEAN CORPUSCULAR HGB CONC 35 G/DL (32-36); MEAN CORPUSCULAR VOLUME 92 FL (80-99); MEAN PLATELET VOLUME 9.3 FL (7.4-10.4); MONOCYTES # (AUTO) 0.4 X 10^3 (0.0-1.0); MONOCYTES % (AUTO) 12 % (0-12); NEUTROPHILS # (AUTO) 1.6 X 10^3 (1.8-7.8); NEUTROPHILS % (AUTO) 50 % (42-75); PLATELET COUNT 312 10^3/uL (130-400); RED BLOOD COUNT 3.44 10^6/uL (4.35-5.85); RED CELL DISTRIBUTION WIDTH 15.5 % (10.0-14.5); WHITE BLOOD COUNT 3.2 10^3/uL (4.3-11.0)
[2017-07-26 20:42] LABS: ALANINE AMINOTRANSFERASE 30 U/L (0-55); ALBUMIN 4.4 GM/DL (3.2-4.5); ALKALINE PHOSPHATASE 127 U/L (40-136); BILIRUBIN,TOTAL 0.4 MG/DL (0.1-1.0); BUN/CREATININE RATIO 10; CALCIUM 8.8 MG/DL (8.5-10.1); CARBON DIOXIDE 20 MMOL/L (21-32); CHLORIDE 101 MMOL/L (98-107); CREATININE SERUM 0.78 MG/DL (0.60-1.30); GFR ESTIMATED > 60; GLUCOSE 76 MG/DL (70-105); POTASSIUM 4.5 MMOL/L (3.6-5.0); SODIUM 135 MMOL/L (135-145); TOTAL PROTEIN 7.8 GM/DL (6.4-8.2)
[2017-07-26 23:02] LABS: BILIRUBIN,URINE NEGATIVE (NEGATIVE); CLARITY,URINE CLEAR; COLOR,URINE YELLOW; GLUCOSE, URINE (UA) NEGATIVE (NEGATIVE); KETONES,URINE NEGATIVE (NEGATIVE); LEUKOCYTE ESTERASE ,URINE NEGATIVE (NEGATIVE); NITRITE,URINE NEGATIVE (NEGATIVE); PH,URINE 6 (5-9); PROTEIN,URINE NEGATIVE (NEGATIVE); UROBILINOGEN,URINE NORMAL (NORMAL)
[2017-07-26 23:09] LABS: SQUAMOUS EPITHELIAL CELL,UR RARE /HPF
[2017-07-26 23:12] LABS: AMPHETAMINE SCREEN, URINE NEGATIVE (NEGATIVE); BARBITURATE SCREEN URINE NEGATIVE (NEGATIVE); BENZODIAZEPINES SCREEN URINE NEGATIVE (NEGATIVE); CANNABINOID SCREEN, URINE NEGATIVE (NEGATIVE); COCAINE SCREEN URINE NEGATIVE (NEGATIVE); METHADONE STAT NEGATIVE (NEGATIVE); METHAMPHETAMINE SCREEN URINE S NEGATIVE (NEGATIVE); OPIATE SCREEN URINE NEGATIVE (NEGATIVE); OXYCODONE STAT NEGATIVE (NEGATIVE); PROPOXYPHENE STAT NEGATIVE (NEGATIVE); TRICYCLIC ANTIDEPRESSANTS SCRE NEGATIVE (NEGATIVE)
[2017-07-27 05:40] VITALS: BP 140/87
[2017-07-28] MEDS ORDERED: HYDR28OI2 TP (19:44)
== END 2017-07-27 05:40 | disposition home or self-care (01) ==
LOC: EDUNIT# 19:15 → ER 19:16
DX: F10.229 Alcohol dependence with intoxication, unspecified (principal); F32.9 Major depressive disorder, single episode, unspecified
CPT/HCPCS: 36415; 80053; 80306; 80320; 81000; 85025; 96365; 96366

== ENCOUNTER 2017-07-28 17:30 | Emergency (ER) | payer OTHER ==
[~2017-07-28] VITALS: Ht 182.9 cm; Wt 74.8 kg
--- NOTE | 2017-07-28 17:56 | ED Integumentary General ---
General Chief Complaint: Skin/Wound Problems Stated Complaint: OPEN WOUNDS Nursing Triage Note: TO ED PER EMS CONCER THAT SOME OF HIS PSORIASIS IS OPEN. REPORTS HE TRIED TO GET ARRESTED SO HE COULD GO TO ASSIST[facility]. REPORTS THEY WOULD NOT TAKE HIM. SO HE CAME HERE BECAUSE WE HAVE KEPT HIM. Source: patient Exam Limitations: no limitations History of Present Illness Date Seen by Provider: Jul 28, 2017 Time Seen by Provider: 17:40 Allergies and Home Medications Allergies Coded Allergies: No Known Drug Allergies (Unverified , 10/19/12) Home Medications Amoxicillin/Potassium Clav 1 Each Tablet, 1 EACH PO TWICE A DAY Prescribed by: DEEPAK ESCALERA on 07/16/17 1303 Hydrocortisone Acetate 28 Gm Oint...g., 28 GM TP UD apply sparingly to the affected area BID Prescribed by: GRACIELA BLAKELY on 07/28/17 1944 Sulfamethoxazole/Trimethoprim 1 Each Tablet, 1 EACH PO BID Prescribed by: GRACIELA BLAKELY on 07/20/17 2238 Past Ezptlkw-Vgjsyv-Maigio Hx Patient Social History Alcohol Use: Occasionally Uses Number of Drinks Today: AA Alcohol Beverage of Choice: Beer Recreational Drug Use: No Smoking Status: Never a Smoker 2nd Hand Smoke Exposure: No Recent Foreign Travel: No Contact w/Someone Who Travel: No Recent Infectious Disease Expo: No Recent Hopitalizations: No Immunizations Up To Date Tetanus Booster (TDap): Less than 5yrs Date of Pneumonia Vaccine: Oct 19, 2008 Date of Influenza Vaccine: Feb 04, 2013 Seasonal Allergies Seasonal Allergies: No Surgeries History of Surgeries: Yes (R foot L elbow) Respiratory History of Respiratory Disorde: No Cardiovascular History of Cardiac Disorders: No Neurological History of Neurological Disord: Yes Reproductive System Hx Reproductive Disorders: No Genitourinary History of Genitourinary Disor: No Gastrointestinal History of Gastrointestinal Di: No Musculoskeletal History of Musculoskeletal Dis: No Endocrine History of Endocrine Disorders: No HEENT History of HEENT Disorders: No Cancer History of Cancer: No Psychosocial History of Psychiatric Problem: Yes (alcoholism) Behavioral Health Disorders: Depression Integumentary History of Skin or Integumenta: Yes Skin/Integumentary Disorders: Psoriasis Blood Transfusions History of Blood Disorders: No Adverse Reaction to a Blood Tr: No Family Medical History Significant Family History: Cancer, COPD Family Medial History: Patient reports no known family medical history. Physical Exam Vital Signs Vital Signs - First Documented 07/28/17 17:45 Temp 97.2 Pulse 100 Resp 45 B/P (MAP) 133/82 (99) Capillary Refill : Less Than 3 Seconds Progress/Results/Core Measures Results/Orders Vital Signs/I&O Vital Sign - Last 12Hours 07/28/17 17:45 Temp 97.2 Pulse 100 Resp 45 B/P (MAP) 133/82 (99) Blood Pressure Mean: 99 Departure Impression Impression: Primary Impression: Psoriasis Additional Impression: Alcohol abuse Disposition: HOME, SELF-CARE Condition: Improved Departure-Patient Inst. Decision time for Depature: 18:55 Referrals: NO,LOCAL PHYSICIAN (PCP/Family) Primary Care Physician Patient Instructions: ALCOHOL AND SUBSTANCE ABUSE, Alcohol Abuse and Alcoholism (DC), Psoriasis (DC) Add. Discharge Instructions: All discharge instructions reviewed with patient and/or family. Voiced understanding. Hydrocortisone cream as instructed to the lower extremities. Continue usual home medications. [facility] with [facility] or your primary care provider of choice for recheck, discussion of alcohol dependence/abuse, and to establish care. Contact the number for veterans provided to you by the emergency department for assistance. Return to the emergency department for worsened symptoms or any other concerns. Scripts Hydrocortisone Acetate (Hydrocortisone) 28 Gm Oint...g. 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
[2017-07-28] MEDS ORDERED: HYDR28OI2 TP (19:44)
[2017-07-28 20:18] VITALS: BP 137/85
== END 2017-07-28 20:18 | disposition home or self-care (01) ==
LOC: EDUNIT# 17:30 → ER 17:30
DX: L40.9 Psoriasis, unspecified (principal); F10.10 Alcohol abuse, uncomplicated; F32.9 Major depressive disorder, single episode, unspecified; Z98.890 Other specified postprocedural states
CPT/HCPCS: 99283